=== PATIENT | female | born 1970 | race Two or more races ===

== ENCOUNTER 2018-06-13 11:34 | Emergency (ER) | payer OTHER | END 2018-06-13 14:21 | disposition home or self-care (01) | LOC: FTE 11:34 | DX: S40.861A Insect bite (nonvenomous) of right upper arm, initial encounter (principal); S40.862A Insect bite (nonvenomous) of left upper arm, initial encounter; S80.861A Insect bite (nonvenomous), right lower leg, initial encounter; S80.862A Insect bite (nonvenomous), left lower leg, initial encounter; W57.XXXA Bitten or stung by nonvenomous insect and other nonvenomous arthropods, initial encounter; Y92.9 Unspecified place or not applicable | CPT/HCPCS: 99284; Z7502 ==

== ENCOUNTER 2019-04-10 21:30 | Emergency (ER) | payer OTHER ==
[2019-04-10] MEDS: DIPHTH/TET/ACEL PERTUSS (ADULT) 0.5 ML VIAL IM* (23:24)
== END 2019-04-10 23:40 | disposition home or self-care (01) ==
LOC: FTE 21:30
DX: S61.512A Laceration without foreign body of left wrist, initial encounter (principal); X83.8XXA Intentional self-harm by other specified means, initial encounter; Y92.9 Unspecified place or not applicable; Z23 Encounter for immunization
CPT/HCPCS: 12001; 90471; 90715; 99283-25